=== PATIENT | male | born 2005 | race Two or more races ===

== ENCOUNTER 2025-02-02 22:16 | Emergency (ER) | payer SELFPAY ==
[~2025-02-02] VITALS: Ht 182.9 cm; Wt 79.5 kg
--- NOTE | 2025-02-02 22:29 | ED.PDOC ---
Godwin. trauma (HPI) HPI Comments 19 year old male who came to ER for head injury. Patient was snowboarding earlier, about an hour ago he had an accident and he fell down on his left side. Patient complaining of left-sided headaches, left neck pains, left lateral chest wall pain, and mid back pains. Patient states he possibly passed out and had loss of consciousness as he fell. Denies any nausea or vomiting. Patient was not wearing any helmet when he was snowboarding earlier Chief Complaint: Head Injury Time Seen by MD: 22:34 Reviewed notes: Nurses Notes Allergies: Coded Allergies: No Known Drug Allergy (Verified Allergy, Unknown, 02/02/25) Home Meds Active Scripts Gabapentin (Once-Daily) (Gabapentin) 300 Mg Tab, 300 MG PO Q6HP PRN, #30 TAB Prov:DEDRICK HANKINS MD 02/02/25 Ibuprofen Micronized (Ibuprofen) 600 Mg Tab, 600 MG PO Q8HP PRN, #30 TAB Prov:DEDRICK HANKINS MD 02/02/25 Information Source: Patient Mode of Arrival: Ambulatory Severity: Moderate Timing: Hours Past Medical History PAST MEDICAL HISTORY: Denies Surgical History: Denies all surgeries Family History Family History: Reviewed,noncontributory to illness Social History Smoker: Non-Smoker Alcohol: Denies ETOH Use Drugs: Denies Drug Use Lives In: Home Constitutional: denies: chills, diaphoresis, fatigue, fever, malaise, sweats, weakness, others EENTM: denies: blurred vision, double vision, ear bleeding, ear discharge, ear drainage, ear pain, ear ringing, eye pain, eye redness, hearing loss, mouth pain, mouth swelling, nasal discharge, nose bleeding, nose congestion, nose pain, photophobia, tearing, throat pain, throat swelling, voice changes, others Respiratory: denies: cough, hemoptysis, orthopnea, SOB at rest, shortness of breath, SOB with excertion, stridor, wheezing, others Cardiovascular: denies: chest pain, dizzy spells, diaphoresis, Dyspnea on exertion, edema, irregular heart beat, left arm pain, lightheadedness, palpitations, PND, syncope, others Gastrointestinal: denies: abdomen distended, abdominal pain, blood streaked bowels, constipated, diarrhea, dysphagia, difficulty swallowing, hematemesis, melena, nausea, poor appetite, poor fluid intake, rectal bleeding, rectal pain, vomiting, others Genitourinary: denies: burning, dysuria, flank pain, frequency, hematuria, incontinence, penile discharge, penile sore, pain, testicle pain, testicle swelling, urgency, others Neurological: reports: headache; denies: dizziness, fainting, left sided numbness, left sided weakness, numbness, paresthesia, pre-existing deficit, right sided numbness, right sided weakness, seizure, speech problems, tingling, tremors, weakness, others Musculoskeletal: reports: back pain, neck pain; denies: gout, joint pain, joint swelling, muscle pain, muscle stiffness, others Integumetry: denies: bruises, change in color, change in hair/nails, dryness, laceration, lesions, lumps, rash, wounds, others Allergic/Immunocompromised: denies: Difficulty Healing, Frequent Infections, Hives, Itching, others Hematologic/Lymphatic: denies: anemia, blood clots, easy bleeding, easy bruising, swollen glands, others Endocrine: denies: excessive hunger, excessive sweating, excessive thirst, excessive urination, flushing, intolerance to cold, intolerance to heat, unexplained weight gain, unexplained weight loss, others Physical Exam General Appearance: No Apparent Distress, Normal HEENT: Normal ENT Inspection, Pharynx Normal, TMs Normal Neck: Full Range of Motion, Non-Tender, Normal, Normal Inspection Respiratory: Chest Non-Tender, Lungs Clear, No Accessory Muscle Use, No Respiratory Distress, Normal Breath Sounds Cardiovascular: No Edema, No JVD, No Murmur, No Gallop, Normal Peripheral Pulses, Regular Rate/Rhythm Breast Exam: Deferred Gastrointestinal: No Organomegaly, Non Tender, No Pulsatile Mass, Normal Bowel Sounds, Soft Genitalia: Deferred Pelvic: Deferred Rectal: Deferred Extremities: No calf tenderness, Normal capillary refill, Normal inspection, Normal range of motion, Non-tender, No pedal edema Musculoskeletal : Apperance: Normal Neurologic: Alert, door to door lead generation II-XII nml as Tested, No Motor Deficits, Normal Affect, Normal Mood, No Sensory Deficits Cerebellar Function: Normal Reflexes: Normal Skin: Dry, Normal Color, Warm Lymphatic: No Adenopathy Was a procedure done? Was a procedure done?: No Differential Diagnosis Multiple Trauma: Closed Head Injury, Fractures, Pneumothorax, Pulmonary Contusion Neck Injury: Cervical Sprain, Cervical Strain X-Ray, Labs, Meds, VS Vital Signs Date Time Temp Pulse Resp B/P (MAP) Pulse Ox O2 Delivery O2 Flow Rate FiO2 02/02/25 23:43 98.1 85 18 120/87 (98) 96 98.1 02/02/25 22:18 97.8 93 24 127/84 98 97.8 Current Medications Medications (Trade) Dose Ordered Sig/Sheri Route Start Time Stop Time Status Last Admin Ibuprofen (Motrin Tablet) 600 mg ONCE ONCE PO 02/02/25 22:30 02/02/25 22:31 DC 02/02/25 22:30 Time of 1ST Reevaluation: 22:29 Reevaluation 1ST: Unchanged Patient Education/Counseling: Diagnosis, Treatment Family Education/Counseling: No Family Present Departure 1 Departure Time of Disposition: 00:30 Impression: Primary Impression: Snowboard accident Additional Impressions: Rib sprain Neck sprain Lumbar sprain Head injury Disposition: HOME / SELF CARE / HOMELESS Condition: Stable e-Prescriptions Gabapentin (Once-Daily) (Gabapentin) 300 Mg Tab 300 MG PO Q6HP PRN, #30 TAB Prov: DEDRICK HANKINS MD 02/02/25 Ibuprofen Micronized (Ibuprofen) 600 Mg Tab 600 MG PO Q8HP PRN, #30 TAB Prov: DEDRICK HANKINS MD 02/02/25 Discharged With: Self Critical Care Note Critical Care Time?: No Stability Stability form required: No Heart Score Heart Score: Heart Score Response (Comments) Value History N/A 0 EKG N/A 0 Age N/A 0 Risk Factors N/A 0 Troponin N/A 0 Total 0 I personally scribed for DEDRICK HANKINS MD ([email or web address]) on 02/02/25 at 22:29. Electronically submitted by Willis Merida ([email or web address]). I personally scribed for DEDRICK HANKINS MD ([email or web address]) on 02/02/25 at 22:34. Electronically submitted by Willis Merida ([email or web address]). DEDRICK HANKINS MD Feb 02, 2025 22:29
[2025-02-02] MEDS: IBUPROFEN 600 MG TAB PO ONE (22:30)
--- NOTE | 2025-02-02 23:40 | DVH ---
CLINICAL HISTORY: Pain / injury. TECHNIQUE: CT of the cervical spine was performed without intravenous contrast. This exam was performed according to our departmental dose optimization program. Up-to-date CT equipment and radiation dose reduction techniques are utilized as appropriate. CTDIvol: 24.7 mGy; DLP: 683.7 mGy-cm. COMPARISON: None available. FINDINGS: [employer]: None available. Alignment: Normal. No traumatic malalignment. Atlantoaxial joint: The dens is intact, the lateral masses of C1 are normally aligned relative to C2, and the atlantodental interval is normal. Bones: No evidence of an acute fracture. Vertebral body heights are maintained. Postop elements are intact. Discs: Normal. Degenerative changes/Spinal canal/Neuroforamen: No significant degenerative changes. No significant spinal canal stenosis or neuroforaminal narrowing. Soft tissues: No prevertebral soft tissue swelling. Visualized neck soft tissues are normal. Other: Left maxillary sinus floor with a small mucosal retention cyst versus polyp. Partially imaged portions of the lung apices are clear. IMPRESSION: No acute fracture or traumatic malalignment of the cervical spine.
--- NOTE | 2025-02-02 23:41 | DVH ---
CT HEAD WITHOUT CONTRAST HISTORY: Pain / injury. COMPARISON: CT HEAD WO on DOS: 08/12/21. CONTRAST: Study was performed without contrast. TECHNIQUE: Axial images from the skull base to the vertex with coronal and sagittal reformatted images. Dose reduction technique was used on this scan by utilizing automated exposure control, adjustment of the mA and/or kV according to the patient size. DICOM format image data available to non-affiliated external healthcare facilities or entities on a secure, media free, reciprocally searchable basis with patient authorization for at least a 12 month period after the study. CTDIvol: 53.4 mGy; DLP: 856.2 mGy-cm. FINDINGS: BRAIN PARENCHYMA: No acute hemorrhage, large vascular territory infarct, or mass effect. White matter is within normal limits for age. VENTRICLES/EXTRA-AXIAL SPACES: No ventriculomegaly or extra-axial collection. Basal cisterns are patent. EXTRACRANIAL STRUCTURES: No acute or suspicious ossues abnormality. Normal soft tissues. Partially images portions of the paranasal sinuses and mastoids demonstrate no significant abnormality. Orbits are unremarkable. IMPRESSION: No acute intracranial abnormality.
[2025-02-02 23:43] VITALS: BP 120/87; PULSE 85; RESP 18; TEMP 98.1; O2SAT 96
--- NOTE | 2025-02-02 23:44 | DVH ---
EXAM: XY LUMBAR SPINE 3 VIEW HISTORY: Pain snowboard injury. COMPARISON: None available. TECHNIQUE: AP and lateral views of the lumbar spine and spot lateral of the lumbosacral junction were performed. FINDINGS: Mild levoconvex curvature of the lumbar spine without significant listhesis. No traumatic malalignment. No evidence of an acute fracture. Vertebral body heights are maintained. No significant degenerate changes. No significant soft tissue abnormality. IMPRESSION: No radiographic evidence of an acute fracture or traumatic malalignment of the lumbar spine.
--- NOTE | 2025-02-02 23:45 | DVH ---
LEFT RIBS: 5 view(s) were obtained. HISTORY: Pain snowboard injury COMPARISON: None available. FINDINGS: No acute displaced left-sided rib fracture. Bones are in anatomic alignment. Visualized lungs are clear. IMPRESSION: No acute displaced left-sided rib fracture.
[2025-02-02] MEDS ORDERED: IBUP1TAB5 PO (23:51)
[2025-02-02] MEDS ORDERED: GABA300T4 PO (23:51)
== END 2025-02-03 00:29 | disposition home or self-care (01) ==
LOC: ER 22:16
DX: S23.41XA Sprain of ribs, initial encounter (principal); S13.4XXA Sprain of ligaments of cervical spine, initial encounter; S33.5XXA Sprain of ligaments of lumbar spine, initial encounter; S09.90XA Unspecified injury of head, initial encounter; W19.XXXA Unspecified fall, initial encounter; Y93.23 Activity, snow (alpine) (downhill) skiing, snowboarding, sledding, tobogganing and snow tubing; Y92.89 Other specified places as the place of occurrence of the external cause; Y99.8 Other external cause status
CPT/HCPCS: 70450; 71101; 72100; 72125